=== PATIENT | female | born 1955 | race Caucasian/White ===

== ENCOUNTER → 2020-11-23 | Outpatient (REF) ==
--- NOTE | 2020-11-23 13:05 | REP ---
INDICATION: KNEE PAIN. COMPARISON: None TECHNIQUE: Three views FINDINGS: Vertebral body height and alignment is within normal limits. There is moderate disc space narrowing at L4-5 and L5-S1. The pedicles are intact bilaterally. Small marginal osteophytes are seen bilaterally at L3-4. Degenerative facet joint changes are seen at L4-5 and L5-S1. IMPRESSION: Chronic changes seen on this limited exam. <Electronically signed by Rell Segundo > 11/23/20 [id number]
--- NOTE | 2020-11-23 13:47 | REP ---
INDICATION: KNEE PAIN COMPARISON: None TECHNIQUE: Five views FINDINGS: There is tricompartmental marginal osteophytosis with evidence of mild tricompartmental narrowing which is rather symmetric in appearance. There is no acute fracture, dislocation, or subluxation. IMPRESSION: Chronic changes as described above. <Electronically signed by Rell Segundo > 11/23/20 [id number]
== END ==
LOC: M PLAIMG 11:20
PROVIDERS: ATTEND Internal Medicine
DX: Z02.71 Encounter for disability determination (principal); M51.36 Other intervertebral disc degeneration, lumbar region; M25.78 Osteophyte, vertebrae